=== PATIENT | male | born 1970 | race Two or more races ===

== ENCOUNTER 2024-12-11 16:14 | Emergency (ER) | payer BC ==
[~2024-12-11] VITALS: Ht 182.9 cm; Wt 79.4 kg
[2024-12-11] MEDS ORDERED: ACETAMINOPHEN 500 MG GEL..CAP PO ONE (18:45)
[2024-12-11 19:53] LABS: BASO % 0.7 % (0.1-1.2); EOS # 0.02 (0.04-0.54); EOS % 0.4 % (0.7-7.0); LYMPH # 0.75 (1.18-3.74); LYMPH % 13.2 % (19.3-53.1); MEAN PLATELET VOLUME 10.20 fl (9.4-12.4); MONO # 0.74 (0.24-0.82); NEUT # 4.12 (1.56-6.13); NEUT % 72.5 % (34.0-71.1); RED CELL DISTRIBUTION WIDTH 12.7 % (11.6-14.4)
[2024-12-11 20:07] LABS: MONO % 13.0 % (4.7-12.5)
[2024-12-11 20:21] LABS: BUN CREA RATIO 17.0 (7.0-25.0); CREATININE SERUM 0.82 mg/dL (0.70-1.30); GFR 97.54; GLUCOSE FASTING 100.0 mg/dL (65-100); OSMOLALITY SERUM 282.0 MOSM/KG (275-295)
[2024-12-11 20:22] LABS: COVID-19 AG POSITIVE (NEGATIVE)
[2024-12-11] MEDS ORDERED: BUTALB/ACETAMINOPHEN/CAFFEINE 1 TAB TABLET PO ONE (20:45)
[2024-12-11] MEDS ORDERED: AZITHROMYCIN 500 MG TABLET PO ONE (21:00)
== END 2024-12-11 21:25 | disposition home or self-care (01) ==
LOC: ER 16:14
PROVIDERS: Emergency Medicine
DX: U07.1 COVID-19 (principal); J40 Bronchitis, not specified as acute or chronic; Z91.011 Allergy to milk products